=== PATIENT | male | born 1975 | race Caucasian/White ===

== ENCOUNTER 2019-04-18 07:10 | Emergency (ER) | payer SELFPAY ==
--- NOTE | 2019-04-18 08:18 | RAD ---
THREE VIEWS LEFT ANKLE: COMPARISON: None. HISTORY: Left ankle pain. FINDINGS: Three views left ankle show no evidence of acute fracture or dislocation. No degenerative changes we re seen. No soft tissue swelling is present. IMPRESSION: Unremarkable exam. POS: CET
== END 2019-04-18 08:22 | disposition home or self-care (01) ==
LOC: ERS 07:10
DX: M25.572 Pain in left ankle and joints of left foot (principal); F41.9 Anxiety disorder, unspecified